=== PATIENT | female | born 2000 | race Two or more races ===

== ENCOUNTER 2023-03-29 11:10 | Emergency (ER) | payer OTHER ==
[~2023-03-29] VITALS: Ht 149.9 cm; Wt 48.6 kg
[2023-03-29 11:35] VITALS: BP 130/81; PULSE 93; RESP 18; TEMP 98.6; O2SAT 99
[2023-03-29] MEDS ORDERED: TOB03OS OP (12:13)
== END 2023-03-29 12:20 | disposition home or self-care (01) ==
LOC: ER 11:10
DX: H10.32 Unspecified acute conjunctivitis, left eye (principal); Z79.2 Long term (current) use of antibiotics

== ENCOUNTER 2023-10-25 09:21 | Emergency (ER) | payer OTHER ==
[~2023-10-25] VITALS: Ht 157.5 cm; Wt 54.5 kg
[~2023-10-25 09:21] MED LIST: TOB03OS OP
[2023-10-25 10:26] VITALS: BP 135/92; PULSE 85; RESP 18; TEMP 97.8; O2SAT 99
[2023-10-25] MEDS ORDERED: CEPH500C PO (10:26)
== END 2023-10-25 10:35 | disposition home or self-care (01) ==
LOC: ER 09:21
DX: Z48.00 Encounter for change or removal of nonsurgical wound dressing (principal)

== ENCOUNTER 2024-05-06 17:00 | Emergency (ER) | payer OTHER ==
[~2024-05-06] VITALS: Ht 149.9 cm; Wt 62.8 kg
[~2024-05-06 17:00] MED LIST changes: +CEPH500C PO
[2024-05-06] MEDS ORDERED: ACET500T58 PO (18:17)
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
[2024-05-06 18:25] VITALS: BP 148/93; PULSE 85; RESP 18; TEMP 98.1; O2SAT 97
== END 2024-05-06 18:28 | disposition home or self-care (01) ==
LOC: ER 17:00
DX: S16.1XXA Strain of muscle, fascia and tendon at neck level, initial encounter (principal); R51.9 Headache, unspecified; Y99.8 Other external cause status; V89.2XXA Person injured in unspecified motor-vehicle accident, traffic, initial encounter; Y93.89 Activity, other specified; Y92.89 Other specified places as the place of occurrence of the external cause; Z79.899 Other long term (current) drug therapy